=== PATIENT | male | born 1985 | race Caucasian/White ===

== ENCOUNTER 2019-01-01 14:05 | Inpatient (IN) | payer OTHER ==
[2019-01-01 14:35] LABS: ADD MAN DIFF? NO
[2019-01-01 14:39] LABS: WHITE BLOOD COUNT 9.6 10^3/ul (4.8-10.8)
[2019-01-01 14:39] LABS: ABNORMAL IP MESSAGE 1; BASOPHILS % 0.2 % (0.0-2.0); HEMATOCRIT 39.4 % (42.0-52.0); HEMOGLOBIN 13.1 g/dl (14.0-18.0); LYMPHOCYTES # 0.5 10^3/ul (0.8-2.9); LYMPHOCYTES % 5.3 % (15.0-51.0); MEAN CORPUSCULAR HEMOGLOBIN 29.6 pg (29.0-33.0); MEAN CORPUSCULAR HGB CONC 33.2 g/dl (32.0-37.0); MEAN CORPUSCULAR VOLUME 88.9 fl (82.0-101.0); MEAN PLATELET VOLUME 10.4 fl (7.4-10.4); MONOCYTE # 0.5 10^3/ul (0.3-0.9); MONOCYTES % 5.4 % (0.0-11.0); NEUTROPHIL # 8.4 10^3/ul (1.6-7.5); NEUTROPHILS % 88.1 % (39.0-77.0); PLATELET COUNT 96 10^3/UL (140-415); POSITIVE DIFF @See below; RED BLOOD COUNT 4.43 10^6/ul (4.70-6.10); RED CELL DISTRIBUTION WIDTH 13.5 % (11.5-14.5)
[2019-01-01] MEDS: SODIUM CHLORIDE 0.9% 1L BAG IV* (14:57)
[2019-01-01] MEDS: CEFEPIME 1GM/50 ML (PMX) 50 ML IVPB (14:57)
[2019-01-01 14:58] LABS: INR 0.89; PARTIAL THROMBOPLASTIN TIME 32.6 Sec (23.0-35.0); PROTIME 12.2 Sec (11.9-14.9)
[2019-01-01 15:08] LABS: ALANINE AMINOTRANSFERASE 57 IU/L (13-69); ALBUMIN 4.1 g/dl (3.3-4.9); ALBUMIN/GLOBULIN RATIO 0.83; ALKALINE PHOSPHATASE 304 IU/L (42-121); ANION GAP 12 (5-13); ASPARTATE AMINO TRANSFERASE 94 IU/L (15-46); BILIRUBIN,INDIRECT 0.5 mg/dl (0-1.1); BILIRUBIN,TOTAL 0.5 mg/dl (0.2-1.3); BLOOD UREA NITROGEN 15 mg/dl (7-20); CALCIUM 8.9 mg/dl (8.4-10.2); CARBON DIOXIDE 25 mmol/L (21-31); CHLORIDE 94 mmol/L (97-110); CREATININE 0.93 mg/dl (0.61-1.24); Estimated GFR > 60 mL/min (>60); GLUCOSE 212 mg/dl (70-220); POTASSIUM 3.5 mmol/L (3.5-5.1); SODIUM 131 mmol/L (135-144)
[2019-01-01 15:19] LABS: TROPONIN-I < 0.012 ng/ml (0.000-0.120)
[2019-01-01] MEDS: VANCOMYCIN 1 GM (PMX) 250 ML IVPB (15:55)
[2019-01-01] MEDS: KETOROLAC 15 MG INJ IV (16:33)
[2019-01-01] MEDS: ACETAMINOPHEN 325 MG TAB PO (16:34)
[2019-01-01 17:09] LABS: LACTIC ACID 1.6 mmol/L (0.5-2.0)
[2019-01-01] MEDS: FENTAnyl 50 MCG/ML VIAL IV (19:47)
[2019-01-01] MEDS ORDERED: ONDANSETRON 4 MG TAB PO (20:30)
[2019-01-01] MEDS ORDERED: NACL 0.9% 3 ML SYG IV (20:30)
[2019-01-01] MEDS ORDERED: VANCOMYCIN IV PER PHARMACY XX (21:00)
[2019-01-01] MEDS: D5-NS + KCL 20 MEQ 1,000 ML IV (21:53)
[2019-01-01] MEDS: FAMOTIDINE 20 MG INJ IV (21:53)
[2019-01-01] MEDS: ENOXAPARIN 40 MG/0.4 ML SYG SC (22:05)
[2019-01-01] MEDS: HYDROCODONE/APAP (10/325) TAB PO (22:13)
[2019-01-01 22:17] LABS: ADD UMIC YES; UR ASCORBIC ACID NEGATIVE (NEGATIVE); UR BACTERIA FEW /HPF (NONE SEEN); UR BILIRUBIN (Dip) NEGATIVE (NEGATIVE); UR BLOOD (Dip) 2+ mg/dL (NEGATIVE); UR CLARITY CLOUDY (CLEAR); UR COLOR YELLOW (YELLOW); UR GLUCOSE (Dip) NEGATIVE (NEGATIVE); UR KETONES (Dip) NEGATIVE (NEGATIVE); UR LEUKOCYTE ESTERASE (Dip) 3+ Leu/ul (NEGATIVE); UR MUCUS FEW /HPF (NONE SEEN); UR NITRITE (Dip) POSITIVE (NEGATIVE); UR RBC 7 /HPF (0-5); UR SPECIFIC GRAVITY (Dip) 1.013 (1.003-1.030); UR TOTAL PROTEIN (Dip) 2+ mg/dl (NEGATIVE); UR TRANSITIONAL EPI CELL MODERATE /HPF (NONE SEEN); UR UROBILINOGEN (Dip) NEGATIVE (NEGATIVE); UR WBC > 182 /HPF (0-5)
[2019-01-01] MEDS: CEFEPIME 2GM/50 ML (PMX) 50 ML IVPB (22:19)
[2019-01-02] MEDS: VANCOMYCIN 750 MG (PMX) 250 ML IVPB ×2 (00:44→08:48)
[2019-01-02] MEDS: ACETAMINOPHEN 325 MG TAB PO (04:11)
[2019-01-02] MEDS: HYDROCODONE/APAP (10/325) TAB PO ×3 (04:15→19:04)
[2019-01-02] MEDS: D5-NS + KCL 20 MEQ 1,000 ML IV ×3 (05:00→21:00)
[2019-01-02 05:32] LABS: ADD MAN DIFF? NO
[2019-01-02 05:44] LABS: HEMOGLOBIN A1C 5.3 % (0-5.9)
[2019-01-02 05:55] LABS: CREATINE KINASE 35 IU/L (23-200)
[2019-01-02 06:06] LABS: WHITE BLOOD COUNT 7.6 10^3/ul (4.8-10.8)
[2019-01-02 06:06] LABS: ABNORMAL IP MESSAGE 1; BASOPHILS % 0.1 % (0.0-2.0); HEMATOCRIT 31.3 % (42.0-52.0); HEMOGLOBIN 10.6 g/dl (14.0-18.0); LYMPHOCYTES # 0.7 10^3/ul (0.8-2.9); LYMPHOCYTES % 8.9 % (15.0-51.0); MEAN CORPUSCULAR HGB CONC 33.9 g/dl (32.0-37.0); MEAN CORPUSCULAR VOLUME 88.7 fl (82.0-101.0); MEAN PLATELET VOLUME 12.2 fl (7.4-10.4); MONOCYTE # 0.8 10^3/ul (0.3-0.9); MONOCYTES % 10.8 % (0.0-11.0); NEUTROPHILS % 79.3 % (39.0-77.0); PLATELET COUNT 81 10^3/UL (140-415); POSITIVE DIFF @See below; RED BLOOD COUNT 3.53 10^6/ul (4.70-6.10); RED CELL DISTRIBUTION WIDTH 13.8 % (11.5-14.5)
[2019-01-02 06:08] LABS: CK INDEX 0.6; CK-MB < 0.22 ng/ml (0.0-2.4); TROPONIN-I 0.013 ng/ml (0.000-0.120)
[2019-01-02 06:15] LABS: ANION GAP 7 (5-13); BLOOD UREA NITROGEN 10 mg/dl (7-20); CALCIUM 8.1 mg/dl (8.4-10.2); CARBON DIOXIDE 21 mmol/L (21-31); CHLORIDE 106 mmol/L (97-110); CREATININE 0.66 mg/dl (0.61-1.24); Estimated GFR > 60 mL/min (>60); GLUCOSE 130 mg/dl (70-220); SODIUM 134 mmol/L (135-144)
[2019-01-02 06:32] LABS: POTASSIUM 2.9 mmol/L (3.5-5.1)
[2019-01-02 07:11] LABS: THYROID STIMULATING HORMONE 0.447 MIU/L (0.465-4.680)
[2019-01-02] MEDS: POTASSIUM CHLORIDE (SR) 20 MEQ TAB PO (08:43)
[2019-01-02] MEDS: FAMOTIDINE 20 MG INJ IV ×2 (08:43→20:56)
[2019-01-02] MEDS: TRIMETHOPRIM/SULFAMETHOX (DS) TAB PO (08:44)
[2019-01-02] MEDS: LAMIVUDINE PO (08:44)
[2019-01-02] MEDS: [UNRECOGNIZED DRUG - OTHER] PO (08:44)
[2019-01-02] MEDS: DOLUTEGRAVIR PO (08:44)
[2019-01-02] MEDS: ENOXAPARIN 40 MG/0.4 ML SYG SC (08:56)
[2019-01-02] MEDS: CEFEPIME 2GM/50 ML (PMX) 50 ML IVPB (11:33)
[2019-01-02] MEDS: ONDANSETRON 4 MG INJ IV ×2 (11:56→20:56)
[2019-01-02] MEDS: PIPER-TAZO 3.375 GM IV (PMX) 100 ML IVPB ×2 (14:15→21:02)
[2019-01-02] MEDS: FLUCONAZOLE 200 MG TAB PO (15:48)
[2019-01-02] MEDS: HYDROmorphONE 0.5 MG/0.5 ML SYG IV ×2 (16:01→20:57)
[2019-01-02] MEDS ORDERED: FAMOTIDINE 20 MG TAB PO (21:00)
[2019-01-03] MEDS: ONDANSETRON 4 MG INJ IV (02:40)
[2019-01-03] MEDS: HYDROmorphONE 0.5 MG/0.5 ML SYG IV ×2 (03:17→20:30)
[2019-01-03] MEDS: ACETAMINOPHEN 325 MG TAB PO (04:54)
[2019-01-03] MEDS: D5-NS + KCL 20 MEQ 1,000 ML IV ×4 (05:00→20:31)
[2019-01-03] MEDS: PIPER-TAZO 3.375 GM IV (PMX) 100 ML IVPB ×3 (05:04→21:38)
[2019-01-03 06:17] LABS: ANION GAP 6 (5-13); BLOOD UREA NITROGEN 5 mg/dl (7-20); CALCIUM 8.5 mg/dl (8.4-10.2); CARBON DIOXIDE 22 mmol/L (21-31); CHLORIDE 106 mmol/L (97-110); Estimated GFR > 60 mL/min (>60); GLUCOSE 135 mg/dl (70-220); POTASSIUM 3.2 mmol/L (3.5-5.1); SODIUM 134 mmol/L (135-144)
[2019-01-03] MEDS: ENOXAPARIN 40 MG/0.4 ML SYG SC (09:00)
[2019-01-03] MEDS: [UNRECOGNIZED DRUG - OTHER] PO (09:12)
[2019-01-03] MEDS: LAMIVUDINE PO (09:12)
[2019-01-03] MEDS: TRIMETHOPRIM/SULFAMETHOX (DS) TAB PO (09:12)
[2019-01-03] MEDS: FLUCONAZOLE 200 MG TAB PO (09:12)
[2019-01-03] MEDS: FAMOTIDINE 20 MG INJ IV ×2 (09:12→20:30)
[2019-01-03] MEDS: DOLUTEGRAVIR PO (09:12)
[2019-01-03] MEDS: AZITHROMYCIN 600 MG TAB PO (15:17)
[2019-01-03] MEDS ORDERED: FAMOTIDINE 20 MG TAB PO (21:00)
[2019-01-03] MEDS: HYDROCODONE/APAP (10/325) TAB PO (21:46)
[2019-01-04] MEDS: PIPER-TAZO 3.375 GM IV (PMX) 100 ML IVPB ×3 (05:37→23:38)
[2019-01-04] MEDS: D5-NS + KCL 20 MEQ 1,000 ML IV ×3 (05:37→20:48)
[2019-01-04] MEDS: TRIMETHOPRIM/SULFAMETHOX (DS) TAB PO (08:04)
[2019-01-04] MEDS: FLUCONAZOLE 200 MG TAB PO (08:04)
[2019-01-04] MEDS: DOLUTEGRAVIR PO (08:05)
[2019-01-04] MEDS: LAMIVUDINE PO (08:05)
[2019-01-04] MEDS: FAMOTIDINE 20 MG INJ IV (08:05)
[2019-01-04] MEDS: [UNRECOGNIZED DRUG - OTHER] PO (08:05)
[2019-01-04] MEDS: ENOXAPARIN 40 MG/0.4 ML SYG SC ×2 (08:08→09:00)
[2019-01-04] MEDS: CEFTRIAXONE 1 GM/50 ML (PMX) 50 ML IVPB (10:07)
[2019-01-04] MEDS: HYDROmorphONE 0.5 MG/0.5 ML SYG IV ×3 (11:09→21:44)
[2019-01-04 11:41] LABS: ADD MAN DIFF? NO
[2019-01-04 11:46] LABS: WHITE BLOOD COUNT 3.7 10^3/ul (4.8-10.8)
[2019-01-04 11:46] LABS: BASOPHILS % 0.3 % (0.0-2.0); EOSINOPHILS # 0.1 10^3/ul (0.0-0.5); EOSINOPHILS % 1.6 % (0.0-7.0); HEMOGLOBIN 10.1 g/dl (14.0-18.0); LYMPHOCYTES % 26.8 % (15.0-51.0); MEAN CORPUSCULAR HEMOGLOBIN 29.7 pg (29.0-33.0); MEAN CORPUSCULAR HGB CONC 32.6 g/dl (32.0-37.0); MEAN CORPUSCULAR VOLUME 91.2 fl (82.0-101.0); MEAN PLATELET VOLUME 10.7 fl (7.4-10.4); MONOCYTE # 0.6 10^3/ul (0.3-0.9); MONOCYTES % 15.2 % (0.0-11.0); PLATELET COUNT 128 10^3/UL (140-415)
[2019-01-04 12:10] LABS: ANION GAP 9 (5-13); BLOOD UREA NITROGEN 4 mg/dl (7-20); CALCIUM 8.4 mg/dl (8.4-10.2); CARBON DIOXIDE 22 mmol/L (21-31); CHLORIDE 106 mmol/L (97-110); CREATININE 0.64 mg/dl (0.61-1.24); Estimated GFR > 60 mL/min (>60); GLUCOSE 104 mg/dl (70-220); MAGNESIUM 1.7 mg/dl (1.7-2.5); POTASSIUM 4.2 mmol/L (3.5-5.1); SODIUM 137 mmol/L (135-144)
[2019-01-04 12:27] LABS: FREE T4 (FREE THYROXINE) 1.12 ng/dl (0.79-2.35)
[2019-01-04 12:46] LABS: LYMPHOCYTE - % CD4 (HELPER) 6 % (30-61); LYMPHOCYTE - %CD8 (SUPPRESSOR) 85 % (12-42); LYMPHOCYTE - ABSOLUTE 640 cells/uL (850-3900); LYMPHOCYTE - ABSOLUTE CD4 40 cells/uL (490-1740); LYMPHOCYTE - ABSOLUTE CD8 541 cells/uL (180-1170); LYMPHOCYTE - CD4/CD8 RATIO 0.07 (0.86-5.00)
[2019-01-04] MEDS: ONDANSETRON 4 MG INJ IV (19:15)
[2019-01-04] MEDS: FAMOTIDINE 20 MG TAB PO (20:47)
[2019-01-04] MEDS: MAGNESIUM SULFATE 2 GM/50 ML 50 ML IVPB (20:48)
[2019-01-05] MEDS: PIPER-TAZO 3.375 GM IV (PMX) 100 ML IVPB ×3 (05:34→23:03)
[2019-01-05] MEDS: D5-NS + KCL 20 MEQ 1,000 ML IV ×4 (05:51→21:48)
[2019-01-05] MEDS: ENOXAPARIN 40 MG/0.4 ML SYG SC (07:49)
[2019-01-05] MEDS: FAMOTIDINE 20 MG TAB PO ×2 (07:49→21:00)
[2019-01-05] MEDS: TRIMETHOPRIM/SULFAMETHOX (DS) TAB PO (08:05)
[2019-01-05] MEDS: HYDROmorphONE 0.5 MG/0.5 ML SYG IV ×2 (08:05→20:30)
[2019-01-05] MEDS: FLUCONAZOLE 200 MG TAB PO (08:05)
[2019-01-05] MEDS: LAMIVUDINE PO (08:06)
[2019-01-05] MEDS: DOLUTEGRAVIR PO (08:06)
[2019-01-05] MEDS: [UNRECOGNIZED DRUG - OTHER] PO (08:06)
[2019-01-05] MEDS: ONDANSETRON 4 MG INJ IV ×2 (12:01→20:30)
[2019-01-05 15:27] LABS: ANION GAP 8 (5-13); BLOOD UREA NITROGEN 3 mg/dl (7-20); CALCIUM 8.2 mg/dl (8.4-10.2); CARBON DIOXIDE 27 mmol/L (21-31); CHLORIDE 103 mmol/L (97-110); CREATININE 0.72 mg/dl (0.61-1.24); Estimated GFR > 60 mL/min (>60); GLUCOSE 125 mg/dl (70-220); MAGNESIUM 1.6 mg/dl (1.7-2.5); POTASSIUM 3.3 mmol/L (3.5-5.1); SODIUM 138 mmol/L (135-144)
[2019-01-06] MEDS: D5-NS + KCL 20 MEQ 1,000 ML IV (05:00)
[2019-01-06] MEDS: PIPER-TAZO 3.375 GM IV (PMX) 100 ML IVPB (05:36)
[2019-01-06] MEDS: ENOXAPARIN 40 MG/0.4 ML SYG SC (09:00)
[2019-01-06] MEDS ORDERED: LIDOCAINE 1% (MPF) 5 ML VIAL SC ×2 (10:00→11:30)
[2019-01-06] MEDS: MAGNESIUM SULFATE 4 GM/100 ML 100 ML IVPB (10:00)
[2019-01-06] MEDS: [UNRECOGNIZED DRUG - OTHER] PO (10:48)
[2019-01-06] MEDS: DOLUTEGRAVIR PO (10:48)
[2019-01-06] MEDS: LAMIVUDINE PO (10:48)
[2019-01-06] MEDS: FLUCONAZOLE 200 MG TAB PO (10:49)
[2019-01-06] MEDS: FAMOTIDINE 20 MG TAB PO (10:49)
[2019-01-06] MEDS: TRIMETHOPRIM/SULFAMETHOX (DS) TAB PO (10:50)
== END 2019-01-06 15:40 | disposition home health service (06) | DRG 975 ==
LOC: 6WM 20:37 → E/R 14:05 → 6WM 19:41
PROC: 02HV33Z Insertion of Infusion Device into Superior Vena Cava, Percutaneous Approach (ICD-10-PCS; principal; 2019-01-06)
DX: B20 Human immunodeficiency virus [HIV] disease (principal); A41.51 Sepsis due to Escherichia coli [E. coli]; R64 Cachexia; Z68.1 Body mass index [BMI] 19.9 or less, adult; N10 Acute pyelonephritis; E87.1 Hypo-osmolality and hyponatremia; E87.6 Hypokalemia; R00.1 Bradycardia, unspecified; E83.42 Hypomagnesemia; D69.2 Other nonthrombocytopenic purpura; R07.89 Other chest pain; Z86.61 Personal history of infections of the central nervous system; Z16.24 Resistance to multiple antibiotics
CPT/HCPCS: 36415; 36569; 71045; 76775; 76937; 80048; 80053; 81001; 82550; 82553; 83036; 83605; 83735; 84439; 84443; 84484; 85025; 85610; 85730; 86360; 87040-91; 87086; 93005; 96365; 96375; 99285-25